=== PATIENT | female | born 1960 | race Hispanic/Latino ===

== ENCOUNTER → 2022-10-31 | Outpatient (CLI) | payer MEDICARE ==
[~2022-10-31] VITALS: Ht 165.1 cm; Wt 62.4 kg
[~2022-10-31] MED LIST: INVANZ 1GM+NS 50ML IVPB 50 ML IV SCH; LACTATED RINGERS 1000ML 1,000 ML IV SCH
[2022-10-31 10:02] LABS: BASOPHILS % (AUTO) 0.7 % (0.0-5.0); HEMATOCRIT 43.5 % (36-48); MEAN CORPUSCULAR HEMOGLOBIN 31.7 pg (27.0-33.0); MEAN CORPUSCULAR HGB CONC 31.7 g/dL (32.0-36.0); MONOCYTES % (AUTO) 4.9 % (3.0-13.0); NEUTROPHILS % (AUTO) 50.1 % (40.0-77.0); PLATELET COUNT (AUTO) 285 K/uL (130-400); RED BLOOD CELL COUNT(AUTO) 4.35 MIL/uL (4.00-5.50); RED CELL DISTRIBUTION WIDTH 14.2 % (11.0-15.5); WHITE BLOOD COUNT (AUTO) 6.7 K/uL (4.8-10.8)
[2022-10-31 11:11] VITALS: BP 133/69
== END | disposition home or self-care (01) ==
LOC: DAH 10:00 → EEVIPCON 11-02 13:00 → EDSTATUS 11-02 13:00
PROVIDERS: ATTEND Surgery
DX: Z93.2 Ileostomy status (principal); R00.1 Bradycardia, unspecified; Z79.899 Other long term (current) drug therapy
CPT/HCPCS: 86900; 87426; 85025; 86850; 86901; 36415; 93005; A6260; J1335